=== PATIENT | male | born 1970 | race Caucasian/White ===

== ENCOUNTER 2018-07-18 11:11 | Inpatient (IN) | payer OTHER, BC ==
[2018-07-18 11:58] VITALS: BMI 34.5
[2018-07-18] MEDS ORDERED: CEFAZOLIN 1 GM in DEXTROSE 5%-WATER - 50 ML IVPB ONE (12:11)
--- NOTE | 2018-07-18 12:22 | PDOC ---
History of Present Illness - General Chief Complaint: Injury Stated Complaint: LT HAND CUT INJURY Time Seen by Provider: 07/18/18 11:59 History Source: Patient Exam Limitations: No Limitations - History of Present Illness Initial Comments: 07/18/18 12:23 48-year-old male with history of hypertension, diabetes presents with left index finger injury. Patient works for [employer], had his left index finger directly in front of a powerhouse mechanic when he was accidentally triggered, causing a laceration and immediate severe swelling of his left index finger. The patient applied pressure and ice and presents now for pain and persistent bleeding from the finger. No other injuries, has some decreased sensation in the left index finger, has difficulty ranging it secondary to pain. Last tetanus was one year ago, no other complaints. Past History - Past Medical History Allergies/Adverse Reactions: Allergies Allergy/AdvReac Type Severity Reaction Status Date / Time No Known Allergies Allergy Verified 07/18/18 11:58 COPD: No Diabetes: Yes - Immunization History Immunization Up to Date: Yes - Suicide/Smoking/Psychosocial Hx Smoking History: Never smoked Have you smoked in the past 12 months: No Information on smoking cessation initiated: No Hx Alcohol Use: No Drug/Substance Use Hx: No Review of Systems - Review of Systems Constitutional: No: Chills, Fever Respiratory: No: Shortness of Breath Cardiac (ROS): No: Chest Pain ABD/GI: No: Nausea, Vomiting Musculoskeletal: Yes: See HPI Integumentary: Yes: See HPI All Other Systems: Reviewed and Negative *Physical Exam - Vital Signs Last Vital Signs Temp Pulse Resp BP Pulse Ox 98.4 F 90 16 149/107 H 100 07/18/18 11:20 07/18/18 11:20 07/18/18 11:20 07/18/18 11:20 07/18/18 11:20 - Physical Exam Comments: 07/18/18 12:24 Vital signs as noted, slightly elevated blood pressure likely secondary to pain GENERAL: The patient is awake, alert, and fully oriented, in no acute distress. HEAD: Normal with no signs of trauma. EYES: Pupils equal, round and reactive to light, extraocular movements intact, sclera anicteric, conjunctiva clear. EXTREMITIES: L hand: superficial abrasion over radial aspect L index finger proximal phalanx, deeper laceration over PIP without obvious deep tissue exposure. active oozing blood from lac. circumferential swelling, + cap refill. unable to range 2/2 pain. NEUROLOGICAL: [Normal speech, normal gait. PSYCH: Normal mood, normal affect. SKIN: See above digit, otherwise warm, Dry, normal turgor, no rashes or lesions noted. Moderate Sedation - Procedure Monitoring Vital Signs: Procedure Monitoring Vital Signs Temperature 98.4 F 07/18/18 11:20 Pulse Rate 90 07/18/18 11:20 Respiratory Rate 16 07/18/18 11:20 Blood Pressure 149/107 H 07/18/18 11:20 O2 Sat by Pulse Oximetry (%) 100 07/18/18 11:20 ED Treatment Course - LABORATORY CBC & Chemistry Diagram: 07/18/18 12:40 07/18/18 12:40 - RADIOLOGY Radiology Studies Ordered: Category Date Time Status HAND- LEFT [RAD] Stat Radiology 07/18/18 12:12 Ordered Medical Decision Making - Medical Decision Making 07/18/18 12:30 48-year-old male with high pressure injection injury to left index finger with hot water, circumferential swelling and pain concerning for possible compartment syndrome and vascular injury. Labs IV antibiotics, x-ray Discuss with Dr. Barajas, senior front end developer for hand surgery, who agrees with concern for compartment syndrome and recommends transfer 07/18/18 13:[address] Camilo from [facility] hand/plastics, no acute surgical intervention indicated. Recommends 24h observation for swelling and neurovascular checks. xray pending, labs pending, received morphine for pain. 07/18/18 14:06 wbc wnl, xray pending. received abx, more comfortable. good cap refill and well perfused at the moment. Accepted for obs med/surg by Dr. Evans, signout given to Dr. Melendez. *DC/Admit/Observation/Transfer Diagnosis at time of Disposition: High-pressure injection injury of finger of left hand Qualifiers: Encounter type: initial encounter Qualified Code(s): S69.82XA - Other specified injuries of left wrist, hand and finger(s), initial encounter - Discharge Dispostion Condition at time of disposition: Fair Decision to Admit order: Yes - Referrals Referrals: Sarthak Wang MD [Primary Care Provider] - - Patient Instructions - Post Discharge Activity
[2018-07-18] MEDS ORDERED: morphine CARPU-JECT 2 MG/1 ML DISP.SYRIN IVPUSH ONE ×2 (12:49→14:27)
[2018-07-18] MEDS ORDERED: MORPHINE SULFATE 2 MG/ML VIAL ONE ×2 (12:51→14:28)
[2018-07-18] MEDS ORDERED: CEFAZOLIN 1 GM/D5W 1 GM/50 ML BAG ONE (12:51)
[2018-07-18 13:16] LABS: BASO % 1.4 % (0-2.0); EOS % 3.1 % (0-4.5); HEMATOCRIT 48.2 % (35.4-49); HEMOGLOBIN 16.8 GM/dL (11.7-16.9); LYMPH % 30.7 % (8-40); MCH 29.8 pg (25.7-33.7); MCHC 34.9 g/dl (32.0-35.9); MEAN CELL VOLUME 85.4 fl (80-96); MEAN PLT VOLUME 8.1 fl (7.5-11.1); NEUT % 55.8 % (42.8-82.8); PLATELET COUNT 215 K/MM3 (134-434); RBC 5.65 M/mm3 (4.00-5.60); RDW 13.9 % (11.9-15.9); WHITE BLOOD COUNT 5.9 K/mm3 (4.0-10.0)
[2018-07-18 13:39] LABS: INR 0.89 (0.83-1.09); PROTHROMBIN TIME (PATIENT) 10.5 SEC (9.7-13.0)
[2018-07-18] MEDS ORDERED: ACETAMINOPHEN 1000 MG/100 ML VIAL (NON FORMULARY) IVPB ONE (14:22)
[2018-07-18] MEDS ORDERED: ACETAMINOPHEN 325 MG TABLET (FP) ONE (14:24)
[2018-07-18 14:42] LABS: ALBUMIN 4.1 g/dl (3.4-5.0); ALK PHOS 68 U/L (45-117); ANION GAP 5 MMOL/L (8-16); BILIRUBIN,TOTAL 0.5 mg/dL (0.2-1); BLOOD UREA NITROGEN 16 mg/dL (7-18); CALCIUM 8.9 mg/dL (8.5-10.1); CHLORIDE 102 mmol/L (98-107); CO2 27 mmol/L (21-32); CREATININE 0.9 mg/dL (0.55-1.3); POTASSIUM 4.5 mmol/L (3.5-5.1); SGOT/AST 27 U/L (15-37); SGPT/ALT 40 U/L (13-61); SODIUM 134 mmol/L (136-145); TOT PROT 7.7 g/dl (6.4-8.2)
[2018-07-18 15:29] LABS: GLUCOSE,RANDOM 303 mg/dL (74-106)
[2018-07-18] MEDS ORDERED: morphine CARPU-JECT 4 MG/1 ML DISP.SYRIN IVPUSH PRN (16:16)
--- NOTE | 2018-07-18 16:17 | HP ---
Admitting History and Physical - Primary Care Physician PCP: Sarthak Wang - Admission Chief Complaint: left hand wound History Source: Patient - Past Medical History Cardiovascular: Yes: HTN, Hyperlipdemia Endocrine: Yes: Diabetes Mellitus - Past Surgical History Additional Past Surgical History: lap band - Smoking History Smoking history: Never smoked Have you smoked in the past 12 months: No - Alcohol/Substance Use Hx Alcohol Use: No Home Medications - Allergies Allergies/Adverse Reactions: Allergies Allergy/AdvReac Type Severity Reaction Status Date / Time No Known Allergies Allergy Verified 07/18/18 11:58 - Home Medications Home Medications: Ambulatory Orders Amlodipine Besylate 07/18/18 Benicar 07/18/18 Cymbalta - 07/18/18 Janumet 50-1,000 mg Tablet 07/18/18 Lamictal 07/18/18 Lipitor 07/18/18 Topamax 07/18/18 Review of Systems - Review of Systems Musculoskeletal: reports: Extremity Pain (hand pain) Physical Examination Vital Signs: Vital Signs Temperature 98.2 F 07/18/18 15:00 Pulse Rate 87 07/18/18 15:00 Respiratory Rate 16 07/18/18 15:00 Blood Pressure 150/95 07/18/18 15:00 O2 Sat by Pulse Oximetry (%) 100 07/18/18 15:00 Constitutional: Yes: Calm Neck: Yes: Trachea Midline Cardiovascular: Yes: Regular Rate and Rhythm, S1, S2 Respiratory: Yes: CTA Bilaterally Gastrointestinal: Yes: Normal Bowel Sounds, Soft Extremities: Yes: Other (three fingers swollen ,not able to flex fingers,first finger open wound with skin tear no sensation in the three fingers and upper palm thenar emminence bluish discoloration of the first three fingers tips) Labs: CBC, BMP 07/18/18 12:40 07/18/18 12:40 Problem List - Problems (1) High-pressure injection injury of finger of left hand Assessment/Plan: hand surgeon pain control morphine ice Code(s): S69.82XA - OTH INJURIES OF LEFT WRIST, HAND AND FINGER(S), INIT ENCNTR ; W29.8XXA - CNTCT WITH OTHER POWERED HAND TOOLS AND HOUSEHOLD MACH, INIT Qualifiers: Encounter type: initial encounter Qualified Code(s): S69.82XA - Other specified injuries of left wrist, hand and finger(s), initial encounter; W29.8XXA - Contact with other powered hand tools and household machinery, initial encounter (2) HTN (hypertension) Assessment/Plan: tomeka arines Code(s): I10 - ESSENTIAL (PRIMARY) HYPERTENSION (3) HLD (hyperlipidemia) Code(s): E78.5 - HYPERLIPIDEMIA, UNSPECIFIED (4) HLD (hyperlipidemia) Assessment/Plan: statin lipid profile Code(s): E78.5 - HYPERLIPIDEMIA, UNSPECIFIED (5) Diabetes Assessment/Plan: januvia metformin slding scale hgba1c bgm Code(s): E11.9 - TYPE 2 DIABETES MELLITUS WITHOUT COMPLICATIONS Qualifiers: Diabetes mellitus type: type 2 (6) Headache Assessment/Plan: topiramate Code(s): R51 - HEADACHE
[2018-07-18] MEDS ORDERED: MORPHINE SULFATE 2 MG/ML VIAL IVPUSH PRN (16:22)
[2018-07-18] MEDS ORDERED: INSULIN (NOVOLOG) ASPART 100 UNITS/ML 10ML VIAL ONE ×2 (16:23→20:43)
[2018-07-18] MEDS: INSULIN SLIDING SCALE (NOVOLOG) 1 VIAL SQ SCH ×2 (16:34→21:10)
[2018-07-18] MEDS: metFORMIN HCL 500 MG TABLET (FP) PO SCH (17:07)
[2018-07-18] MEDS ORDERED: CEFAZOLIN 1 GM/D5W 1 GM/50 ML BAG IVPB SCH (18:00)
[2018-07-18] MEDS: traMADol HCL 50 MG TABLET PO PRN (18:56)
--- NOTE | 2018-07-18 19:00 | PN ---
Progress Note (short form) - Note Progress Note: ID CONSULT DICTATED S/P LACERATION L INDEX FINGER R/O SOFT TISSUE INFECTION DIABETES MELLITUS OBTAIN BC SURGICAL EVALUATION EMPIRIC ZOSYN/VANCOMYCIN
[2018-07-18] MEDS ORDERED: PIPERACILLIN/TAZOBACTAM 3.375 GM VIAL IVPB ONE (20:36)
[2018-07-18] MEDS ORDERED: DEXTROSE 5%-WATER - 50 ML IVPB ONE (20:36)
[2018-07-18] MEDS: PIPERACILLIN/TAZOB 3.375 GM 3.375 GM in DEXTROSE 5%-WATER - 50 ML IVPB SCH (20:46)
[2018-07-18] MEDS: VANCOMYCIN 1 GRAM (PRE-DOCKED) 1,000 MG/250 ML BAG IVPB SCH (20:46)
[2018-07-18] MEDS: DOCUSATE SODIUM 100 MG CAPSULE (FP) PO SCH (21:05)
[2018-07-18] MEDS: lamoTRIgine 25 MG TABLET PO SCH (21:05)
[2018-07-18] MEDS: ATORVASTATIN CA 10 MG TABLET (FP) PO SCH (21:05)
[2018-07-18] MEDS ORDERED: lamoTRIgine 25 MG TABLET PO SCH (22:00)
[2018-07-18] MEDS ORDERED: ROSUVASTATIN CA 10 MG TABLET (FP) PO SCH (22:00)
[2018-07-18] MEDS: MORPHINE SULFATE 2 MG/ML VIAL IVPUSH PRN (22:04)
[2018-07-19] MEDS ORDERED: DEXTROSE 5%-WATER - 50 ML IVPB ONE ×3 (01:19→16:50)
[2018-07-19] MEDS ORDERED: PIPERACILLIN/TAZOBACTAM 3.375 GM VIAL IVPB ONE ×3 (01:19→16:50)
[2018-07-19] MEDS: traMADol HCL 50 MG TABLET PO PRN ×3 (01:21→19:49)
[2018-07-19] MEDS: PIPERACILLIN/TAZOB 3.375 GM 3.375 GM in DEXTROSE 5%-WATER - 50 ML IVPB SCH ×3 (01:22→17:12)
[2018-07-19] MEDS ORDERED: PT OWN MED DRAWER 7, Y5N ONE ×3 (06:24→21:25)
[2018-07-19] MEDS: INSULIN SLIDING SCALE (NOVOLOG) 1 VIAL SQ SCH ×4 (06:27→21:33)
[2018-07-19] MEDS: MORPHINE SULFATE 2 MG/ML VIAL IVPUSH PRN ×3 (06:27→15:45)
[2018-07-19] MEDS: sitaGLIPtin PHOSPHATE 100 MG TABLET (FP) PO SCH (06:28)
[2018-07-19] MEDS: metFORMIN HCL 500 MG TABLET (FP) PO SCH ×2 (06:28→17:09)
[2018-07-19 07:59] LABS: HEMOGLOBIN 15.8 GM/dL (11.7-16.9); MCH 29.4 pg (25.7-33.7); MEAN CELL VOLUME 83.8 fl (80-96); MEAN PLT VOLUME 7.7 fl (7.5-11.1); PLATELET COUNT 201 K/MM3 (134-434); RBC 5.37 M/mm3 (4.00-5.60); RDW 14.1 % (11.9-15.9); WHITE BLOOD COUNT 6.8 K/mm3 (4.0-10.0)
[2018-07-19] MEDS: VANCOMYCIN 1 GRAM (PRE-DOCKED) 1,000 MG/250 ML BAG IVPB SCH ×2 (08:13→19:30)
[2018-07-19 08:23] LABS: INR 0.99 (0.83-1.09); PROTHROMBIN TIME (PATIENT) 11.7 SEC (9.7-13.0)
[2018-07-19 08:28] LABS: ALBUMIN 3.8 g/dl (3.4-5.0); ANION GAP 6 MMOL/L (8-16); BILIRUBIN,TOTAL 0.9 mg/dL (0.2-1); BLOOD UREA NITROGEN 12 mg/dL (7-18); CALCIUM 8.9 mg/dL (8.5-10.1); CHLORIDE 103 mmol/L (98-107); CO2 27 mmol/L (21-32); CREATININE 0.9 mg/dL (0.55-1.3); GLUCOSE,RANDOM 212 mg/dL (74-106); PHOSPHOROUS 3.5 mg/dL (2.5-4.9); POTASSIUM 3.9 mmol/L (3.5-5.1); SODIUM 137 mmol/L (136-145)
[2018-07-19 08:29] LABS: ALK PHOS 65 U/L (45-117); SGOT/AST 16 U/L (15-37); SGPT/ALT 29 U/L (13-61)
[2018-07-19] MEDS: amLODIPine BESYLATE 10 MG TABLET (FP) PO SCH (09:23)
[2018-07-19] MEDS: LOSARTAN POTASSIUM 50 MG TABLET (FP) PO SCH (09:23)
[2018-07-19] MEDS: CITALOPRAM HYDROBROMIDE 20 MG TABLET (FP) PO SCH (09:23)
[2018-07-19] MEDS: DULoxetine HCL 30 MG CAPSULE.DR (FP) PO SCH (09:23)
[2018-07-19] MEDS: TOPIRAMATE 100 MG TABLET PO SCH (09:31)
[2018-07-19] MEDS: lamoTRIgine 25 MG TABLET PO SCH ×2 (09:32→21:34)
[2018-07-19] MEDS: LACTOBACILLUS ACIDOPHILUS 1 TABLET PO SCH (09:32)
[2018-07-19] MEDS ORDERED: VALSARTAN 80 MG TABLET (UD) PO SCH (10:00)
[2018-07-19] MEDS ORDERED: amLODIPine BESYLATE 10 MG TABLET (FP) PO SCH (10:00)
[2018-07-19] MEDS ORDERED: DULoxetine HCL 20 MG CAPSULE.DR (FP) PO SCH (10:00)
[2018-07-19] MEDS ORDERED: DULoxetine HCL 60 MG CAPSULE.DR PO SCH (10:00)
--- NOTE | 2018-07-19 15:15 | CONSULT ---
Consult - text type - Consultation Consultation Note: FULL CONSULT DICTATED IMP: HIGH PRESSURE INURY TO LEFT 2ND AND THIRD FINGER PLAN: IV ABX, ELEVATION, AROM AND WILL FOLLOW TO SEE IF ANY AREA OF NECROSIS DEMARCATES
--- NOTE | 2018-07-19 15:30 | PN ---
Progress Note, Physician Chief Complaint: Laceration L hand second digit Edema to L hand 2nd and 3rd digit History of Present Illness: Previous notes and events reviewed awake and alert NAD complain of pain to L hand second digit - Current Medication List Current Medications: Active Medications Amlodipine Besylate (Norvasc -) 10 mg PO DAILY [facility] Last Admin: 07/19/18 09:23 Dose: 10 mg Atorvastatin Calcium (Lipitor -) 10 mg PO HS [facility] Last Admin: 07/18/18 21:05 Dose: 10 mg Citalopram Hydrobromide (Celexa -) 40 mg PO DAILY [facility] Last Admin: 07/19/18 09:23 Dose: 40 mg Docusate Sodium (Colace -) 300 mg PO HS [facility] Last Admin: 07/18/18 21:05 Dose: 300 mg Duloxetine HCl (Cymbalta -) 60 mg PO DAILY [facility] Last Admin: 07/19/18 09:23 Dose: 60 mg Vancomycin HCl (Vancomycin (Pre-Docked)) 1,000 mg in 250 mls @ 166.667 mls/hr IVPB Q12H [facility]; Protocol Last Admin: 07/19/18 08:13 Dose: 166.667 mls/hr Piperacillin Sod/Tazobactam (Sod 3.375 gm/ Dextrose) 50 mls @ 100 mls/hr IVPB Q8H-IV [facility]; Protocol Last Admin: 07/19/18 09:33 Dose: 100 mls/hr Insulin Aspart (Novolog Vial Sliding Scale -) 1 vial SQ ACHS [facility]; Protocol Last Admin: 07/19/18 11:24 Dose: 2 units Lactobacillus Acidophilus (Bacid -) 1 tab PO DAILY [facility] Last Admin: 07/19/18 09:32 Dose: 1 tab Lamotrigine (Lamictal -) 50 mg PO BID [facility] Last Admin: 07/19/18 09:32 Dose: 50 mg Losartan Potassium (Cozaar -) 100 mg PO DAILY [facility] Last Admin: 07/19/18 09:23 Dose: 100 mg Metformin HCl (Glucophage -) 500 mg PO BID@0700,1630 [facility] Last Admin: 07/19/18 06:28 Dose: 500 mg Morphine Sulfate (Morphine Sulfate) 4 mg IVPUSH Q4H PRN PRN Reason: PAIN LEVEL 7 - 10 Last Admin: 07/19/18 11:03 Dose: 4 mg Sitagliptin Phosphate (Januvia -) 100 mg PO DAILY@0700 [facility] Last Admin: 07/19/18 06:28 Dose: 100 mg Topiramate (Topamax -) 100 mg PO DAILY [facility] Last Admin: 07/19/18 09:31 Dose: 100 mg Tramadol HCl (Ultram -) 50 mg PO Q6H PRN PRN Reason: PAIN LEVEL 7 - 10 Last Admin: 07/19/18 09:31 Dose: 50 mg - Objective Vital Signs: Vital Signs Temperature 98 F 07/19/18 09:00 Pulse Rate 91 H 07/19/18 09:00 Respiratory Rate 20 07/19/18 09:00 Blood Pressure 143/94 07/19/18 09:00 O2 Sat by Pulse Oximetry (%) 99 07/19/18 09:00 Constitutional: Yes: Well Nourished, No Distress, Calm Eyes: Yes: Conjunctiva Clear HENT: Yes: Normocephalic Neck: Yes: Supple Cardiovascular: Yes: Regular Rate and Rhythm Respiratory: Yes: Regular, CTA Bilaterally Gastrointestinal: Yes: Normal Bowel Sounds, Soft Extremities: Yes: Other (Edema noted to 2nd and 3rd digit L hand, erythema noted second digit and palm, decreased sensation to second digit, unable to flex finger) Integumentary: Yes: Other (Laceration to L hand 2nd digit, blisters noted to 2nd and 3rd digit) Wound/Incision: Yes: Open to air Neurological: Yes: Alert, Oriented Psychiatric: Yes: Alert, Oriented Labs: CBC, BMP 07/19/18 06:45 07/19/18 06:45 INR, PTT INR 0.99 (0.83-1.09) 07/19/18 06:45 <Tonya Villalobos - Last Filed: 07/19/18 15:24> - Current Medication List Current Medications: Active Medications Amlodipine Besylate (Norvasc -) 10 mg PO DAILY [facility] Last Admin: 07/19/18 09:23 Dose: 10 mg Atorvastatin Calcium (Lipitor -) 10 mg PO [facility] Last Admin: 07/19/18 21:34 Dose: 10 mg Citalopram Hydrobromide (Celexa -) 40 mg PO DAILY [facility] Last Admin: 07/19/18 09:23 Dose: 40 mg Docusate Sodium (Colace -) 300 mg PO [facility] Last Admin: 07/19/18 21:34 Dose: 300 mg Duloxetine HCl (Cymbalta -) 60 mg PO DAILY [facility] Last Admin: 07/19/18 09:23 Dose: 60 mg Vancomycin HCl (Vancomycin (Pre-Docked)) 1,000 mg in 250 mls @ 166.667 mls/hr IVPB Q12H [facility]; Protocol Last Admin: 07/20/18 06:12 Dose: 166.667 mls/hr Piperacillin Sod/Tazobactam (Sod 3.375 gm/ Dextrose) 50 mls @ 100 mls/hr IVPB Q8H-IV [facility]; Protocol Last Admin: 07/20/18 02:01 Dose: 100 mls/hr Insulin Aspart (Novolog Vial Sliding Scale -) 1 vial SQ ACHS [facility]; Protocol Last Admin: 07/20/18 06:12 Dose: 2 units Lactobacillus Acidophilus (Bacid -) 1 tab PO DAILY [facility] Last Admin: 07/19/18 09:32 Dose: 1 tab Lamotrigine (Lamictal -) 50 mg PO BID [facility] Last Admin: 07/19/18 21:34 Dose: 50 mg Losartan Potassium (Cozaar -) 100 mg PO DAILY [facility] Last Admin: 07/19/18 09:23 Dose: 100 mg Metformin HCl (Glucophage -) 500 mg PO BID@0700,1630 [facility] Last Admin: 07/20/18 06:12 Dose: 500 mg Morphine Sulfate (Morphine Sulfate) 4 mg IVPUSH Q4H PRN PRN Reason: PAIN LEVEL 7 - 10 Last Admin: 07/19/18 15:45 Dose: 4 mg Senna (Senna -) 2 tab PO [facility] Last Admin: 07/19/18 21:34 Dose: 2 tab Sitagliptin Phosphate (Januvia -) 100 mg PO DAILY@0700 [facility] Last Admin: 07/20/18 06:12 Dose: 100 mg Topiramate (Topamax -) 100 mg PO DAILY [facility] Last Admin: 07/19/18 09:31 Dose: 100 mg Tramadol HCl (Ultram -) 50 mg PO Q6H PRN PRN Reason: PAIN LEVEL 7 - 10 Last Admin: 07/20/18 08:40 Dose: 50 mg - Objective Vital Signs: Vital Signs Temperature 98.4 F 07/19/18 19:15 Pulse Rate 86 07/19/18 19:15 Respiratory Rate 20 07/19/18 21:00 Blood Pressure 137/86 07/19/18 19:15 O2 Sat by Pulse Oximetry (%) 99 07/19/18 21:00 Labs: CBC, BMP 07/20/18 07:00 07/20/18 07:00 INR, PTT INR 0.99 (0.83-1.09) 07/19/18 06:45 <Emma Evans - Last Filed: 07/20/18 09:54> Problem List - Problems (1) HLD (hyperlipidemia) Assessment/Plan: -cont atorvastatin 10mg qhs Code(s): E78.5 - HYPERLIPIDEMIA, UNSPECIFIED (2) HTN (hypertension) Assessment/Plan: -cont amlodipine 10mg daily and losartan 100mg daily -low Na diet Code(s): I10 - ESSENTIAL (PRIMARY) HYPERTENSION (3) High-pressure injection injury of finger of left hand Assessment/Plan: -orthopedics on board -ID on board, cont IV ABT -pain management Code(s): S69.82XA - OTH INJURIES OF LEFT WRIST, HAND AND FINGER(S), INIT ENCNTR ; W29.8XXA - CNTCT WITH OTHER POWERED HAND TOOLS AND HOUSEHOLD MACH, INIT Qualifiers: Encounter type: initial encounter Qualified Code(s): S69.82XA - Other specified injuries of left wrist, hand and finger(s), initial encounter; W29.8XXA - Contact with other powered hand tools and household machinery, initial encounter (4) Diabetes Assessment/Plan: -cont januvia and metformin -BGM ACHS ISS -diabetic diet Code(s): E11.9 - TYPE 2 DIABETES MELLITUS WITHOUT COMPLICATIONS Qualifiers: Diabetes mellitus type: type 2 <Tonya Villalobos - Last Filed: 07/19/18 15:24> Assessment/Plan PATIENT SEEN AND EXAMINED AND I AGREE WITH THE ABOVE NOTE <Emma Evans - Last Filed: 07/20/18 09:54>
--- NOTE | 2018-07-19 16:10 | CONS ---
DATE OF CONSULTATION: 07/19/2018 ORTHOPEDIC CONSULTATION LOCATION: [facility] Patient is a 48-year-old [id number] diabetic right-hand dominant patient status post having high-pressure power shovel mechanic inject fluid into his left second and third fingers. There was no cleanser or any other material in the pressure except for the fluid, and it was not steam it was just warm water. Patient was admitted through the emergency room, placed on prophylactic IV antibiotics, and Orthopedic consultation was requested. PHYSICAL EXAMINATION: Patient has blistering of the palmar surface of his left second and third fingers, large blister over the middle phalanx of the second finger, less so over the distal phalanx and proximal phalanx and down into the proximal palm. He also has some blistering around the third finger in the middle phalanx again on the palmar surface. He has a brisk capillary refill. On the dorsum, it is complete, full sensation and no tenderness although he has significant tenderness over the palmar aspect of the hand. Some decreased sensation in the tips of both his fingers but proximal sensation is intact and quite painful. He does have independent DIP, PIP, and MCP flexion but very, very minimal, but can actively do it independently. No deep space palmar surface tenderness or pressure. X-rays reviewed were negative for fracture. IMPRESSION: High-pressure injection of fluid into his second and third fingers causing blistering and swelling of second and third fingers, but currently is neurovascularly intact. He may have some underlying necrosis of some of the soft tissue, but this is not demarcated yet. As of now, the only findings are swelling and a great deal of blistering on the palmar surface. PLAN: After cleaning the fingers, I have taken an 18-gauge needle and popped the blisters on both the second and third fingers, and clear fluid escaped and left the skin intact as a biologic dressing. This immediately decreased his level of pain and improved his range of motion of both the second and third fingers. We will follow the patient closely, continue elevation, encourage range of motion of his fingers, continue prophylactic antibiotic, and we will follow him daily to see if any necrotic tissue demarcates itself, but currently, things are looking okay. FERNANDO PARKER M.D. [id number]
[2018-07-19] MEDS: DOCUSATE SODIUM 100 MG CAPSULE (FP) PO SCH (21:34)
[2018-07-19] MEDS: SENNOSIDES 8.6MG TABLET (FP) PO SCH (21:34)
[2018-07-19] MEDS: ATORVASTATIN CA 10 MG TABLET (FP) PO SCH (21:34)
[2018-07-20] MEDS ORDERED: DEXTROSE 5%-WATER - 50 ML IVPB ONE ×3 (01:59→17:39)
[2018-07-20] MEDS ORDERED: PIPERACILLIN/TAZOBACTAM 3.375 GM VIAL IVPB ONE ×3 (01:59→17:39)
[2018-07-20] MEDS: PIPERACILLIN/TAZOB 3.375 GM 3.375 GM in DEXTROSE 5%-WATER - 50 ML IVPB SCH ×3 (02:01→17:45)
[2018-07-20] MEDS: traMADol HCL 50 MG TABLET PO PRN ×3 (02:02→22:02)
[2018-07-20] MEDS: sitaGLIPtin PHOSPHATE 100 MG TABLET (FP) PO SCH (06:12)
[2018-07-20] MEDS: VANCOMYCIN 1 GRAM (PRE-DOCKED) 1,000 MG/250 ML BAG IVPB SCH ×2 (06:12→19:25)
[2018-07-20] MEDS: metFORMIN HCL 500 MG TABLET (FP) PO SCH ×2 (06:12→17:30)
[2018-07-20] MEDS: INSULIN SLIDING SCALE (NOVOLOG) 1 VIAL SQ SCH ×4 (06:12→21:57)
[2018-07-20 08:13] LABS: HEMATOCRIT 42.7 % (35.4-49); HEMOGLOBIN 15.3 GM/dL (11.7-16.9); MCH 29.9 pg (25.7-33.7); MCHC 35.7 g/dl (32.0-35.9); MEAN CELL VOLUME 83.8 fl (80-96); MEAN PLT VOLUME 7.7 fl (7.5-11.1); PLATELET COUNT 194 K/MM3 (134-434); RDW 14.1 % (11.9-15.9); WHITE BLOOD COUNT 6.3 K/mm3 (4.0-10.0)
[2018-07-20 09:23] LABS: ALBUMIN 3.4 g/dl (3.4-5.0); ALK PHOS 62 U/L (45-117); ANION GAP 7 MMOL/L (8-16); BLOOD UREA NITROGEN 13 mg/dL (7-18); CALCIUM 9.1 mg/dL (8.5-10.1); CHLORIDE 102 mmol/L (98-107); CO2 27 mmol/L (21-32); CREATININE 0.9 mg/dL (0.55-1.3); GLUCOSE,RANDOM 220 mg/dL (74-106); POTASSIUM 4.2 mmol/L (3.5-5.1); SGOT/AST 13 U/L (15-37); SGPT/ALT 21 U/L (13-61); SODIUM 136 mmol/L (136-145); TOT PROT 6.5 g/dl (6.4-8.2)
--- NOTE | 2018-07-20 10:02 | PN ---
Progress Note, Physician Chief Complaint: events and notes reviewed c/o pain wound left hand with dressing - Current Medication List Current Medications: Active Medications Amlodipine Besylate (Norvasc -) 10 mg PO DAILY [facility] Last Admin: 07/19/18 09:23 Dose: 10 mg Atorvastatin Calcium (Lipitor -) 10 mg PO [facility] Last Admin: 07/19/18 21:34 Dose: 10 mg Citalopram Hydrobromide (Celexa -) 40 mg PO DAILY [facility] Last Admin: 07/19/18 09:23 Dose: 40 mg Docusate Sodium (Colace -) 300 mg PO [facility] Last Admin: 07/19/18 21:34 Dose: 300 mg Duloxetine HCl (Cymbalta -) 60 mg PO DAILY [facility] Last Admin: 07/19/18 09:23 Dose: 60 mg Vancomycin HCl (Vancomycin (Pre-Docked)) 1,000 mg in 250 mls @ 166.667 mls/hr IVPB Q12H [facility]; Protocol Last Admin: 07/20/18 06:12 Dose: 166.667 mls/hr Piperacillin Sod/Tazobactam (Sod 3.375 gm/ Dextrose) 50 mls @ 100 mls/hr IVPB Q8H-IV [facility]; Protocol Last Admin: 07/20/18 02:01 Dose: 100 mls/hr Insulin Aspart (Novolog Vial Sliding Scale -) 1 vial SQ ACHS [facility]; Protocol Last Admin: 07/20/18 06:12 Dose: 2 units Lactobacillus Acidophilus (Bacid -) 1 tab PO DAILY [facility] Last Admin: 07/19/18 09:32 Dose: 1 tab Lamotrigine (Lamictal -) 50 mg PO BID [facility] Last Admin: 07/19/18 21:34 Dose: 50 mg Losartan Potassium (Cozaar -) 100 mg PO DAILY [facility] Last Admin: 07/19/18 09:23 Dose: 100 mg Metformin HCl (Glucophage -) 500 mg PO BID@0700,1630 [facility] Last Admin: 07/20/18 06:12 Dose: 500 mg Morphine Sulfate (Morphine Sulfate) 4 mg IVPUSH Q4H PRN PRN Reason: PAIN LEVEL 7 - 10 Last Admin: 07/19/18 15:45 Dose: 4 mg Senna (Senna -) 2 tab PO [facility] Last Admin: 07/19/18 21:34 Dose: 2 tab Sitagliptin Phosphate (Januvia -) 100 mg PO DAILY@0700 [facility] Last Admin: 07/20/18 06:12 Dose: 100 mg Topiramate (Topamax -) 100 mg PO DAILY [facility] Last Admin: 07/19/18 09:31 Dose: 100 mg Tramadol HCl (Ultram -) 50 mg PO Q6H PRN PRN Reason: PAIN LEVEL 7 - 10 Last Admin: 07/20/18 08:40 Dose: 50 mg - Objective Vital Signs: Vital Signs Temperature 98.4 F 07/19/18 19:15 Pulse Rate 86 07/19/18 19:15 Respiratory Rate 20 07/19/18 21:00 Blood Pressure 137/86 07/19/18 19:15 O2 Sat by Pulse Oximetry (%) 99 07/19/18 21:00 Constitutional: Yes: Moderate Distress HENT: Yes: WNL Neck: Yes: WNL Cardiovascular: Yes: WNL Respiratory: Yes: WNL Gastrointestinal: Yes: WNL Genitourinary: Yes: WNL Musculoskeletal: Yes: Joint Swelling Extremities: Yes: Deformity Edema: Yes Edema: LUE: 2+ Integumentary: Yes: Pressure Ulcer, Other Wound/Incision: Yes: Dressing Removed, Draining, Reddened, Excoriated, Unapproximated, Other (left index finger laceration wound with purelent discharge) Neurological: Yes: Weakness Labs: CBC, BMP 07/20/18 07:00 07/20/18 07:00 INR, PTT INR 0.99 (0.83-1.09) 07/19/18 06:45 Problem List - Problems (1) Diabetes Code(s): E11.9 - TYPE 2 DIABETES MELLITUS WITHOUT COMPLICATIONS Qualifiers: Diabetes mellitus type: type 2 (2) HLD (hyperlipidemia) Code(s): E78.5 - HYPERLIPIDEMIA, UNSPECIFIED (3) HTN (hypertension) Code(s): I10 - ESSENTIAL (PRIMARY) HYPERTENSION (4) High-pressure injection injury of finger of left hand Code(s): S69.82XA - OTH INJURIES OF LEFT WRIST, HAND AND FINGER(S), INIT ENCNTR ; W29.8XXA - CNTCT WITH OTHER POWERED HAND TOOLS AND HOUSEHOLD MACH, INIT Qualifiers: Encounter type: initial encounter Qualified Code(s): S69.82XA - Other specified injuries of left wrist, hand and finger(s), initial encounter; W29.8XXA - Contact with other powered hand tools and household machinery, initial encounter Assessment/Plan iv abx wound care pain control tetanus vaccine given in November 2017 hand surgeon f/u
[2018-07-20] MEDS: DULoxetine HCL 30 MG CAPSULE.DR (FP) PO SCH (10:15)
[2018-07-20] MEDS: CITALOPRAM HYDROBROMIDE 20 MG TABLET (FP) PO SCH (10:15)
[2018-07-20] MEDS: amLODIPine BESYLATE 10 MG TABLET (FP) PO SCH (10:16)
[2018-07-20] MEDS: LOSARTAN POTASSIUM 50 MG TABLET (FP) PO SCH (10:16)
[2018-07-20] MEDS: LACTOBACILLUS ACIDOPHILUS 1 TABLET PO SCH (10:17)
[2018-07-20] MEDS: MORPHINE SULFATE 2 MG/ML VIAL IVPUSH PRN ×2 (10:18→13:58)
[2018-07-20] MEDS: lamoTRIgine 25 MG TABLET PO SCH ×2 (10:19→21:58)
[2018-07-20] MEDS: TOPIRAMATE 100 MG TABLET PO SCH (10:19)
[2018-07-20] MEDS ORDERED: INSULIN (NOVOLOG) ASPART 100 UNITS/ML 10ML VIAL ONE (10:32)
--- NOTE | 2018-07-20 11:27 | PN ---
Progress Note (short form) - Note Progress Note: Pt seen and examined. He feels better this AM, less pain, better ROM, less swelling. Still states left index finger has some decreased sensation. The device of injury was high pressure water, no paint, no grease, no other material. PE Left hand has mild to mod swelling over the palm and the dorsum. Left index finger has an entry wound over the radial aspect of the middle aspect of the finger. + irregular laceration, minimal skin loss. No drainage, no signs of pus or infection. Intact left index finger, and the rest of the hand, FDS, FDP, EDC tendons , intact ROM and function, without significant pain. + good capillary refill, about 2 seconds, over all finger tips including the index. Index finger still moderately swollen + areas of decreased sensation over the left index finger distal and middle phalanx area, no area of total anesthesia Imp 2 Days s/p high pressure water gun injury left index finger, improving, no signs of compartment syndrome or infection, or tendon,nerve,artery laceration. Rec No surgery needed at this time. Elevation, maintain ROM, con't antibiotics. DC likely tomorrow, f/u as an out patient
[2018-07-20] MEDS ORDERED: PT OWN MED DRAWER 7, Y5N ONE (21:30)
[2018-07-20] MEDS: DOCUSATE SODIUM 100 MG CAPSULE (FP) PO SCH (21:58)
[2018-07-20] MEDS: SENNOSIDES 8.6MG TABLET (FP) PO SCH (21:58)
[2018-07-20] MEDS: ATORVASTATIN CA 10 MG TABLET (FP) PO SCH (21:58)
[2018-07-21] MEDS ORDERED: DEXTROSE 5%-WATER - 50 ML IVPB ONE ×2 (02:03→09:40)
[2018-07-21] MEDS ORDERED: PIPERACILLIN/TAZOBACTAM 3.375 GM VIAL IVPB ONE ×2 (02:03→09:40)
[2018-07-21] MEDS: PIPERACILLIN/TAZOB 3.375 GM 3.375 GM in DEXTROSE 5%-WATER - 50 ML IVPB SCH ×2 (02:10→09:43)
[2018-07-21] MEDS: metFORMIN HCL 500 MG TABLET (FP) PO SCH (06:20)
[2018-07-21] MEDS: sitaGLIPtin PHOSPHATE 100 MG TABLET (FP) PO SCH (06:20)
[2018-07-21] MEDS: traMADol HCL 50 MG TABLET PO PRN (06:20)
[2018-07-21] MEDS: INSULIN SLIDING SCALE (NOVOLOG) 1 VIAL SQ SCH ×2 (06:21→11:42)
[2018-07-21] MEDS: VANCOMYCIN 1 GRAM (PRE-DOCKED) 1,000 MG/250 ML BAG IVPB SCH (06:22)
[2018-07-21 06:52] VITALS: BP 128/95; PULSE 82; TEMP 98.1
[2018-07-21] MEDS ORDERED: PT OWN MED DRAWER 7, Y5N ONE ×2 (08:27→09:40)
[2018-07-21] MEDS: LOSARTAN POTASSIUM 50 MG TABLET (FP) PO SCH (09:43)
[2018-07-21] MEDS: DULoxetine HCL 30 MG CAPSULE.DR (FP) PO SCH (09:43)
[2018-07-21] MEDS: CITALOPRAM HYDROBROMIDE 20 MG TABLET (FP) PO SCH (09:43)
[2018-07-21] MEDS: amLODIPine BESYLATE 10 MG TABLET (FP) PO SCH (09:44)
[2018-07-21] MEDS: lamoTRIgine 25 MG TABLET PO SCH (09:44)
[2018-07-21] MEDS: LACTOBACILLUS ACIDOPHILUS 1 TABLET PO SCH (09:44)
[2018-07-21] MEDS: TOPIRAMATE 100 MG TABLET PO SCH (09:45)
--- NOTE | 2018-07-21 09:47 | PN ---
Progress Note (short form) - Note Progress Note: Pt seen and examined. His left index finger and hand are improving. Swelling continues to improve, no signs of compartment syndrome, good capillary refill > 2 sec, subjective sensation 80% normal, + blistering, very minimal drainage, wound cultures negative so far, no clinical signs of infection, better ROM with less pain. Overall improving. I spoke with ID, Dr Stanley I rec DC home today after switching to PO antibiotics Elevation, ROM exercises Follow up with me Wednesday of next week
--- NOTE | 2018-07-21 10:16 | DS ---
Physical Examination Vital Signs: Vital Signs Temperature 98.1 F 07/21/18 06:50 Pulse Rate 82 07/21/18 06:50 Respiratory Rate 20 07/21/18 06:50 Blood Pressure 128/95 07/21/18 06:50 O2 Sat by Pulse Oximetry (%) 99 07/20/18 21:00 Findings/Remarks: Patient is a 48 y/o male admitted for high-pressure injection injury to L hand 2nd digit. Patient sustain injury from power washing nozzle. ID is on board and started on IV ABT. Patient evaluated by orthopedics and recommend no acute need for surgery as present. Instructed to keep hand elevated, AROM of L hand and digit, and continue ABT. Constitutional: Yes: Well Nourished, No Distress, Calm Eyes: Yes: Conjunctiva Clear HENT: Yes: Normocephalic Neck: Yes: Supple Cardiovascular: Yes: Regular Rate and Rhythm Respiratory: Yes: Regular, CTA Bilaterally Gastrointestinal: Yes: Normal Bowel Sounds, Soft Musculoskeletal: Yes: WNL Extremities: Yes: Other (Edema to L hand, laceration with serosanguinous drainage to lateral aspect of L index finger, (+) sensation) Edema: Yes (L hand) Wound/Incision: Yes: Open to air Neurological: Yes: Alert, Oriented Psychiatric: Yes: Alert, Oriented Labs: CBC, BMP 07/20/18 07:00 07/20/18 07:00 Discharge Summary Reason For Visit: HIGH PRESSURE INJECTION INJURY LT FINGER LT HAND Current Active Problems Diabetes (Acute) HLD (hyperlipidemia) (Acute) HLD (hyperlipidemia) (Acute) HTN (hypertension) (Acute) Headache (Acute) High-pressure injection injury of finger of left hand (Acute) Hospital Course: see progress notes Microbiology 07/18/18 21:05 Blood Culture - Preliminary Blood - Peripheral Venous NO GROWTH OBTAINED AFTER 48 HOURS, INCUBATION TO CONTINUE FOR 3 DAYS. 07/18/18 20:50 Blood Culture - Preliminary Blood - Peripheral Venous NO GROWTH OBTAINED AFTER 48 HOURS, INCUBATION TO CONTINUE FOR 3 DAYS. 07/20/18 12:10 Gram Stain - Final Hand - Left Home Medication List Medication Instructions Recorded Confirmed Type Amlodipine Besylate 07/18/18 History Benicar 1 tab PO DAILY 07/18/18 07/18/18 History Citalopram Hydrobromide [Celexa -] 1 tab PO DAILY 07/18/18 07/18/18 History Cymbalta - 60 mg PO DAILY 07/18/18 07/18/18 History Janumet 50-1,000 mg Tablet 1 tab PO BID 07/18/18 07/18/18 History Lamictal 150 mg PO DAILY 07/18/18 07/18/18 History Lipitor 10 mg PO HS 07/18/18 07/18/18 History Topamax 100 mg PO DAILY 07/18/18 07/18/18 History Active Medications Generic Name Dose Route Start Last Admin Trade Name Linda PRN Reason Stop Dose Admin Amlodipine Besylate 10 mg 07/19/18 10:00 07/21/18 09:44 Norvasc - PO 10 mg DAILY JUMANA Administration Atorvastatin Calcium 10 mg 07/18/18 22:00 07/20/18 21:58 Lipitor - PO 10 mg HS JUMANA Administration Citalopram Hydrobromide 40 mg 07/19/18 10:00 07/21/18 09:43 Celexa - PO 40 mg DAILY JUMANA Administration Docusate Sodium 300 mg 07/18/18 22:00 07/20/18 21:58 Colace - PO 300 mg HS JUMANA Administration Duloxetine HCl 60 mg 07/19/18 10:00 07/21/18 09:43 Cymbalta - PO 60 mg DAILY JUMANA Administration Vancomycin HCl 1,000 mg in 250 mls @ 166.667 mls/hr 07/18/18 19:00 07/21/18 06:22 Vancomycin (Pre-Docked) IVPB 166.667 mls/hr Q12H JUMANA Administration Protocol Piperacillin Sod/Tazobactam 50 mls @ 100 mls/hr 07/18/18 19:00 07/21/18 09:43 Sod 3.375 gm/ Dextrose IVPB 100 mls/hr Q8H-IV JUMANA Administration Protocol Insulin Aspart 1 vial 07/18/18 16:30 07/21/18 06:21 Novolog Vial Sliding Scale - SQ Not Given ACHS JUMANA Protocol Lactobacillus Acidophilus 1 tab 07/19/18 10:00 07/21/18 09:44 Bacid - PO 1 tab DAILY JUMANA Administration Lamotrigine 50 mg 07/18/18 22:00 07/21/18 09:44 Lamictal - PO 50 mg BID JUMANA Administration Losartan Potassium 100 mg 07/19/18 10:00 07/21/18 09:43 Cozaar - PO 100 mg DAILY JUMANA Administration Metformin HCl 500 mg 07/18/18 16:30 07/21/18 06:20 Glucophage - PO 500 mg BID@0700,1630 JUMANA Administration Morphine Sulfate 4 mg 07/18/18 16:21 07/20/18 13:58 Morphine Sulfate IVPUSH 4 mg Q4H PRN Administration PAIN LEVEL 7 - 10 Senna 2 tab 07/19/18 22:00 07/20/18 21:58 Senna - PO 2 tab HS JUMANA Administration Sitagliptin Phosphate 100 mg 07/19/18 07:00 07/21/18 06:20 Januvia - PO 100 mg DAILY@0700 JUMANA Administration Topiramate 100 mg 07/19/18 10:00 07/21/18 09:45 Topamax - PO 100 mg DAILY JUMANA Administration Tramadol HCl 50 mg 07/18/18 16:20 07/21/18 06:20 Ultram - PO 50 mg Q6H PRN Administration PAIN LEVEL 7 - 10 Laboratory Results - last 24 hr 07/20/18 07/20/18 07/20/18 10:27 17:48 21:56 POC Glucometer 235 172 311 07/21/18 05:49 POC Glucometer 193 Laboratory Tests 07/18/18 07/18/18 07/18/18 12:40 12:40 12:40 WBC 5.9 RBC 5.65 H Hgb 16.8 Hct 48.2 MCV 85.4 MCH 29.8 MCHC 34.9 RDW 13.9 Plt Count 215 MPV 8.1 Absolute Neuts (auto) 3.3 Neutrophils % 55.8 Lymphocytes % 30.7 Monocytes % 9.0 Eosinophils % 3.1 Basophils % 1.4 Nucleated RBC % 0 PT with INR 10.50 INR 0.89 Sodium 134 L Potassium 4.5 Chloride 102 Carbon Dioxide 27 Anion Gap 5 L BUN 16 Creatinine 0.9 Creat Clearance w eGFR > 60 POC Glucometer Random Glucose 303 H* Calcium 8.9 Phosphorus Magnesium Total Bilirubin 0.5 AST 27 ALT 40 Alkaline Phosphatase 68 Total Protein 7.7 Albumin 4.1 Blood Type Antibody Screen 07/18/18 07/18/18 07/19/18 12:40 21:07 06:15 WBC RBC Hgb Hct MCV MCH MCHC RDW Plt Count MPV Absolute Neuts (auto) Neutrophils % Lymphocytes % Monocytes % Eosinophils % Basophils % Nucleated RBC % PT with INR INR Sodium Potassium Chloride Carbon Dioxide Anion Gap BUN Creatinine Creat Clearance w eGFR POC Glucometer 207 203 Random Glucose Calcium Phosphorus Magnesium Total Bilirubin AST ALT Alkaline Phosphatase Total Protein Albumin Blood Type A POSITIVE Antibody Screen Negative 07/19/18 07/19/18 07/19/18 06:45 06:45 06:45 WBC 6.8 RBC 5.37 Hgb 15.8 Hct 45.0 MCV 83.8 MCH 29.4 MCHC 35.0 RDW 14.1 Plt Count 201 MPV 7.7 Absolute Neuts (auto) Neutrophils % Lymphocytes % Monocytes % Eosinophils % Basophils % Nucleated RBC % PT with INR 11.70 INR 0.99 Sodium 137 Potassium 3.9 Chloride 103 Carbon Dioxide 27 Anion Gap 6 L BUN 12 Creatinine 0.9 Creat Clearance w eGFR > 60 POC Glucometer Random Glucose 212 H Calcium 8.9 Phosphorus 3.5 Magnesium 2.0 Total Bilirubin 0.9 AST 16 ALT 29 Alkaline Phosphatase 65 Total Protein 7.0 Albumin 3.8 Blood Type Antibody Screen 07/19/18 07/19/18 07/19/18 11:23 17:08 21:31 WBC RBC Hgb Hct MCV MCH MCHC RDW Plt Count MPV Absolute Neuts (auto) Neutrophils % Lymphocytes % Monocytes % Eosinophils % Basophils % Nucleated RBC % PT with INR INR Sodium Potassium Chloride Carbon Dioxide Anion Gap BUN Creatinine Creat Clearance w eGFR POC Glucometer 208 233 260 Random Glucose Calcium Phosphorus Magnesium Total Bilirubin AST ALT Alkaline Phosphatase Total Protein Albumin Blood Type Antibody Screen 07/20/18 07/20/18 07/20/18 05:58 07:00 07:00 WBC 6.3 RBC 5.10 Hgb 15.3 Hct 42.7 MCV 83.8 MCH 29.9 MCHC 35.7 RDW 14.1 Plt Count 194 MPV 7.7 Absolute Neuts (auto) Neutrophils % Lymphocytes % Monocytes % Eosinophils % Basophils % Nucleated RBC % PT with INR INR Sodium 136 Potassium 4.2 Chloride 102 Carbon Dioxide 27 Anion Gap 7 L BUN 13 Creatinine 0.9 Creat Clearance w eGFR > 60 POC Glucometer 216 Random Glucose 220 H Calcium 9.1 Phosphorus Magnesium Total Bilirubin 1.0 AST 13 L ALT 21 Alkaline Phosphatase 62 Total Protein 6.5 Albumin 3.4 Blood Type Antibody Screen 07/20/18 07/20/18 07/20/18 10:27 17:48 21:56 WBC RBC Hgb Hct MCV MCH MCHC RDW Plt Count MPV Absolute Neuts (auto) Neutrophils % Lymphocytes % Monocytes % Eosinophils % Basophils % Nucleated RBC % PT with INR INR Sodium Potassium Chloride Carbon Dioxide Anion Gap BUN Creatinine Creat Clearance w eGFR POC Glucometer 235 172 311 Random Glucose Calcium Phosphorus Magnesium Total Bilirubin AST ALT Alkaline Phosphatase Total Protein Albumin Blood Type Antibody Screen 07/21/18 05:49 WBC RBC Hgb Hct MCV MCH MCHC RDW Plt Count MPV Absolute Neuts (auto) Neutrophils % Lymphocytes % Monocytes % Eosinophils % Basophils % Nucleated RBC % PT with INR INR Sodium Potassium Chloride Carbon Dioxide Anion Gap BUN Creatinine Creat Clearance w eGFR POC Glucometer 193 Random Glucose Calcium Phosphorus Magnesium Total Bilirubin AST ALT Alkaline Phosphatase Total Protein Albumin Blood Type Antibody Screen Condition: Fair - Instructions Diet, Activity, Other Instructions: Follow up with Orthopedics Dr. Kidd on 07/25/18 for follow up continue with AROM of L hand, keep L hand elevated Follow up with PMD in 1 week referral given for marketing strategy manager Dr. Mortensen for DM low Na/diabetic diet continue with medication as prescribed Referrals: Sarthak Wang MD [Primary Care Provider] - Chandan Mortensen MD [Staff Physician] - Gil Kidd MD [Staff Physician] - Disposition: HOME - Home Medications Comprehensive Discharge Medication List: Ambulatory Orders Amlodipine Besylate 07/18/18 Benicar 1 tab PO DAILY 07/18/18 Citalopram Hydrobromide [Celexa -] 1 tab PO DAILY 07/18/18 Cymbalta - 60 mg PO DAILY 07/18/18 Janumet 50-1,000 mg Tablet 1 tab PO BID 07/18/18 Lamictal 150 mg PO DAILY 07/18/18 Lipitor 10 mg PO HS 07/18/18 Topamax 100 mg PO DAILY 07/18/18
[2018-07-21] MEDS ORDERED: INSULIN (NOVOLOG) ASPART 100 UNITS/ML 10ML VIAL ONE (11:28)
--- NOTE | 2018-07-21 12:17 | PN ---
Progress Note, Physician History of Present Illness: REPORTS LESS INDEX FINGER SWELLING, IN ROM BODY FITTER C/O PAIN AT PRESENT NO REPORTED WOUND DRAINAGE NO F/C AFEBRILE WBC WNL BC, WOUND C/S (-) - Current Medication List Current Medications: Active Medications Amlodipine Besylate (Norvasc -) 10 mg PO DAILY [facility] Last Admin: 07/21/18 09:44 Dose: 10 mg Amoxicillin/Clavulanate Potassium (Augmentin - 875mg Tablet) 1 tab PO BID@0800, 1730 [facility] Atorvastatin Calcium (Lipitor -) 10 mg PO [facility] Last Admin: 07/20/18 21:58 Dose: 10 mg Citalopram Hydrobromide (Celexa -) 40 mg PO DAILY [facility] Last Admin: 07/21/18 09:43 Dose: 40 mg Docusate Sodium (Colace -) 300 mg PO [facility] Last Admin: 07/20/18 21:58 Dose: 300 mg Duloxetine HCl (Cymbalta -) 60 mg PO DAILY [facility] Last Admin: 07/21/18 09:43 Dose: 60 mg Insulin Aspart (Novolog Vial Sliding Scale -) 1 vial SQ [facility]; Protocol Last Admin: 07/21/18 11:42 Dose: 2 units Lactobacillus Acidophilus (Bacid -) 1 tab PO DAILY [facility] Last Admin: 07/21/18 09:44 Dose: 1 tab Lamotrigine (Lamictal -) 50 mg PO BID [facility] Last Admin: 07/21/18 09:44 Dose: 50 mg Losartan Potassium (Cozaar -) 100 mg PO DAILY [facility] Last Admin: 07/21/18 09:43 Dose: 100 mg Metformin HCl (Glucophage -) 500 mg PO BID@0700,1630 [facility] Last Admin: 07/21/18 06:20 Dose: 500 mg Morphine Sulfate (Morphine Sulfate) 4 mg IVPUSH Q4H PRN PRN Reason: PAIN LEVEL 7 - 10 Last Admin: 07/20/18 13:58 Dose: 4 mg Senna (Senna -) 2 tab PO [facility] Last Admin: 07/20/18 21:58 Dose: 2 tab Sitagliptin Phosphate (Januvia -) 100 mg PO DAILY@0700 [facility] Last Admin: 07/21/18 06:20 Dose: 100 mg Topiramate (Topamax -) 100 mg PO DAILY [facility] Last Admin: 07/21/18 09:45 Dose: 100 mg Tramadol HCl (Ultram -) 50 mg PO Q6H PRN PRN Reason: PAIN LEVEL 7 - 10 Last Admin: 07/21/18 06:20 Dose: 50 mg - Objective Vital Signs: Vital Signs Temperature 98.1 F 07/21/18 06:50 Pulse Rate 82 07/21/18 06:50 Respiratory Rate 20 07/21/18 06:50 Blood Pressure 128/95 07/21/18 06:50 O2 Sat by Pulse Oximetry (%) 99 07/20/18 21:00 Constitutional: Yes: No Distress, Obese Cardiovascular: Yes: Regular Rate and Rhythm, S1, S2 Respiratory: Yes: CTA Bilaterally Gastrointestinal: Yes: Normal Bowel Sounds, Soft Extremities: Yes: Other (+ FUSIFORM SWELLING L INDEX FINGER NO ERYTHEMA/ DRAINAGE) Labs: CBC, BMP 07/20/18 07:00 07/20/18 07:00 INR, PTT INR 0.99 (0.83-1.09) 07/19/18 06:45 Assessment/Plan S/P LACERATION L INDEX FINGER DIABETES MELLITUS NO CLINICAL SIGNS OF INFECTION, HOWEVER IN LIGHT OF HX DIABETES CONTINUE EMPIRIC ANTIBIOTIC THERAPY AUGMENTIN 875MG PO BID X7D OUTPATIENT SURGICAL F/U
[2018-07-21] MEDS ORDERED: AMOX TR/POT CLAV 875MG/125MG TABLETS (FP) PO SCH (17:30)
== END 2018-07-21 13:39 | disposition home or self-care (01) | DRG 384 ==
LOC: JER 11:11 → JERBED 14:09 → J6S 15:10 → OBSVTOIN 16:11
PROVIDERS: ADMIT Family Medicine; ATTEND Family Medicine
DX: S61.213A Laceration without foreign body of left middle finger without damage to nail, initial encounter (principal); S61.211A Laceration without foreign body of left index finger without damage to nail, initial encounter; X58.XXXA Exposure to other specified factors, initial encounter; Y93.89 Activity, other specified; Y92.9 Unspecified place or not applicable; Y99.8 Other external cause status; E78.5 Hyperlipidemia, unspecified; I10 Essential (primary) hypertension; R51 Headache; E11.9 Type 2 diabetes mellitus without complications
CPT/HCPCS: 36415; 73130-TC-LT-FY; 80053; 82962; 83735; 84100; 85025; 85027; 85610; 86850; 86900; 86901; 87040; 87070; 87205; 99281-25; G0378

== ENCOUNTER 2020-08-16 11:31 | Emergency (ER) | payer OTHER, BC ==
[2020-08-16 11:47] VITALS: TEMP 97.8; BMI 35.9
[2020-08-16 13:08] LABS: BASO % 0.9 % (0-2.0); EOS % 2.8 % (0-4.5); HEMATOCRIT 50.8 % (35.4-49); HEMOGLOBIN 17.4 GM/dL (11.7-16.9); LYMPH % 30.9 % (8-40); MCH 28.7 pg (25.7-33.7); MCHC 34.2 g/dl (32.0-35.9); MEAN PLT VOLUME 7.9 fl (7.5-11.1); MONO % 9.8 % (3.8-10.2); NEUT % 55.6 % (42.8-82.8); PLATELET COUNT 226 K/MM3 (134-434); RBC 6.05 M/mm3 (4.00-5.60)
[2020-08-16 13:14] LABS: INR 0.88 (0.83-1.09); PROTHROMBIN TIME (PATIENT) 10.9 SEC (9.7-13.0)
[2020-08-16 13:17] LABS: ACTIVATED PTT 28.5 SECONDS (25.2-36.5)
[2020-08-16 13:30] LABS: POTASSIUM 4.9 mmol/L (3.5-5.1)
[2020-08-16 13:32] LABS: CALCIUM 10.2 mg/dL (8.5-10.1)
[2020-08-16 13:33] LABS: ALBUMIN 4.6 g/dl (3.4-5.0)
[2020-08-16 13:37] LABS: BILIRUBIN,TOTAL 0.8 mg/dL (0.2-1); TOT PROT 8.5 g/dl (6.4-8.2)
[2020-08-16] MEDS ORDERED: ACETAMINOPHEN 1000 MG/100 ML VIAL (NON FORMULARY) IVPB ONE (14:08)
[2020-08-16] MEDS ORDERED: ACETAMINOPHEN INJECTION 100 ML IVPB ONE (14:13)
[2020-08-16] MEDS ORDERED: LACTATED RINGERS SOLUTION 1000 ML INFUS.BAG IV ONE (14:55)
[2020-08-16 15:31] VITALS: BP 149/113; PULSE 95
== END 2020-08-16 15:31 | disposition short-term general hospital (02) ==
LOC: JER 11:31
PROC: 3E033GC Introduction of Other Therapeutic Substance into Peripheral Vein, Percutaneous Approach (ICD-10-PCS; principal; 2020-08-16)
DX: S30.1XXA Contusion of abdominal wall, initial encounter (principal); R07.9 Chest pain, unspecified; W17.89XA Other fall from one level to another, initial encounter; W22.8XXA Striking against or struck by other objects, initial encounter
CPT/HCPCS: 36415; 70450-TC; 71260-TC; 72125-TC; 72128-TC; 72131-TC; 74177-TC; 80053; 83690; 84484; 85025; 85610; 85730; 86850; 86900; 86901; 93005; 93010; 99285-25; C9803; J0131; Q9967; U0003

== ENCOUNTER 2022-09-28 07:50 | Emergency (ER) | payer BC ==
[2022-09-28 07:58] VITALS: RESP 18; BMI 35.9
[2022-09-28] MEDS ORDERED: MECLIZINE HCL 25 MG TABLET (FP) PO ONE ×2 (08:20→08:27)
[2022-09-28] MEDS ORDERED: MECLIZINE HCL 25 MG TABLET (FP) ONE (08:36)
[2022-09-28] MEDS ORDERED: LORazepam 2 MG/ML SDV VIAL IVPUSH ONE (08:38)
[2022-09-28] MEDS ORDERED: SODIUM CHLORIDE 0.9% 1000 ML INFUS.BAG IV ONE (08:40)
[2022-09-28 08:59] LABS: HEMATOCRIT 47.5 % (35.4-49); HEMOGLOBIN 16.6 GM/dL (11.7-16.9); RBC 5.73 M/mm3 (4.00-5.60); WHITE BLOOD COUNT 5.9 K/mm3 (4.0-10.0)
[2022-09-28 09:00] LABS: MCH 28.9 pg (25.7-33.7); MCHC 34.9 g/dl (32.0-35.9); MEAN CELL VOLUME 82.8 fl (80-96); MEAN PLT VOLUME 7.4 fl (7.5-11.1); PLATELET COUNT 207 10^3/uL (134-434); RDW 13.9 % (11.9-15.9)
[2022-09-28 09:18] LABS: ALBUMIN 4.3 g/dl (3.4-5.0)
[2022-09-28 09:19] LABS: BLOOD UREA NITROGEN 17.4 mg/dL (7-18)
[2022-09-28 09:21] LABS: CREATININE 0.9 mg/dL (0.55-1.3)
[2022-09-28 09:23] LABS: BILIRUBIN,TOTAL 0.8 mg/dL (0.2-1)
[2022-09-28 11:20] VITALS: BP 155/85; PULSE 85; TEMP 98
== END 2022-09-28 11:20 | disposition home or self-care (01) ==
LOC: JER 07:50
PROC: 3E033GC Introduction of Other Therapeutic Substance into Peripheral Vein, Percutaneous Approach (ICD-10-PCS; principal; 2022-09-28)
DX: R42 Dizziness and giddiness (principal)
CPT/HCPCS: 36415; 70450-TC; 80053; 82962; 84484; 85027; 93005; 93010; 99285-25